=== PATIENT | female | born 1970 | race Caucasian/White ===

== ENCOUNTER 2018-04-26 20:37 | Emergency (ER) | payer BC, OTHER ==
[2018-04-26] MEDS ORDERED: Diazepam TAB(*) 5 MG PO ONE (21:47)
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
[2018-04-26 22:28] VITALS: BP 116/73
== END 2018-04-26 22:26 | disposition home or self-care (01) ==
LOC: ED 20:37
DX: M62.838 Other muscle spasm (principal); M54.2 Cervicalgia; Z91.040 Latex allergy status
CPT/HCPCS: 99282; A9270-GY